=== PATIENT | female | born 1985 | race Caucasian/White ===

== ENCOUNTER → 2018-06-27 08:15 | Outpatient (CLI) | payer OTHER, SELFPAY ==
--- NOTE | 2018-06-27 | DI.US.S_ITS ---
PROCEDURE: US OB <= 14 WEEKS FETUS INDICATIONS: SIZE AND DATES OUTSIDE/PRIOR DATING DATA: Last menstrual period (LMP): Unknown. LMP-based estimated date of delivery (SAL): Unknown. First dating scan (date and location): 06/27/18. Estimated date of delivery (SAL) from first dating scan: 01/30/19. TECHNIQUE: Real-time scanning was performed of the fetus and maternal pelvic organs, with image documentation. Endovaginal scanning was also performed to better visualize the fetus and maternal ovaries. COMPARISON: None. FINDINGS: Embryo: A single intrauterine is identified. A pole is well visualized with a crown-rump length measuring 2.3 cm in length, correlating with an estimated gestational age of 9 weeks 0 days (SAL 01/30/19). A yolk sac is well-visualized and within normal limits. No evidence of a subchorionic hemorrhage is appreciated. heart motion was detected at 169 beats per minute. Measurement variability in dating: +/- 4 weeks by LMP, +/- 7 days by mean sac diameter (use before 6 weeks gestation if crown-rump length not able to be measured), +/- 5 days by crown-rump length (up to 8 weeks 6 days gestation), +/- 7 days by crown-rump length (up to 13 weeks 6 days gestation). Maternal organs: Ovaries are within normal limits. Limited images through the kidneys demonstrate no hydronephrosis. IMPRESSION: 1. Single live intrauterine at 9 weeks 0 days (sonographic SAL of 01/30/19). 2. No subchorionic hemorrhage. Dictated by: Erwin Benavidez M.D. on 06/27/2018 at 8:53 Approved by: Erwin Benavidez M.D. on 06/27/2018 at 8:55
== END ==
PROVIDERS: Family Provider Family Medicine; PCP Family Medicine; Visit Provider Family Medicine
DX: Z34.91 Encounter for supervision of normal pregnancy, unspecified, first trimester (principal); Z3A.09 9 weeks gestation of pregnancy
CPT/HCPCS: 76801; 76817

== ENCOUNTER → 2018-09-14 14:04 | Outpatient (CLI) | payer OTHER, SELFPAY ==
--- NOTE | 2018-09-14 | DI.US.S_ITS ---
PROCEDURE: US OB >= 14 WEEKS FETUS INDICATIONS: 20 WEEK ANATOMICAL SURVEY OUTSIDE/PRIOR DATING DATA: Last menstrual period (LMP): Unknown. LMP-based estimated date of delivery (SAL): Unknown. First dating scan (date and location): 06/27/18. Estimated date of delivery (SAL) from first dating scan: 01/30/19. TECHNIQUE: Real-time scanning was performed of the fetus, with image documentation and biometric measurements. Endovaginal scanning: No COMPARISON: [facility], OB <= 14 WEEKS FETUS, 06/27/2018, 8:25. FINDINGS: General: A single living intrauterine gestation is present. Presentation: Vertex. Placenta: Placental position is posterior, without previa. Amniotic fluid index: 11.6 cm, normal range is 5-24 cm. heart rate: 141 beats per minute. Maternal cervical canal: 3.7 cm long. Normal lower limit is 2.5 cm. biometrics: Biparietal diameter: 21 weeks 2 days Head circumference: 21 weeks 1 day Abdominal circumference: 21 weeks 1 day Femur length: 20 weeks 0 days Estimated gestational age from initial scan: 20 weeks 2 days Composite gestational age from present scan: 20 weeks 6 days Estimated weight and percentile: 369 g; 67% Measurement variability for biometric dating: +/- 7 days from 14 weeks to 15 weeks 6 days gestation, +/- 10 days from 16 weeks to 21 weeks 6 days gestation, +/- 2 weeks from 22 weeks to 27 weeks 6 days gestation, +/- 3 weeks for 28 weeks gestation or later. weight reference: 4500 g or EFW >90/95% is considered macrosomia or large for gestational age. EFW <10% is small for gestational age. EFW 5% or less is considered intra-uterine growth restriction. Anatomic survey: Neuro: Ventricles are non-dilated at less than 10 mm. Cisterna magna is normal at 3-11 mm. Cerebellum is normal in size and morphology. Nuchal skin fold: Normal at less than 6 mm between 14-21 weeks gestational age. Face: Nose and lips, facial profile are normal. Spine: No evidence for spina bifida. Heart: 4-chambered heart is present, with normal ventricular outflow tracts. Diaphragm: Diaphragm is intact. Stomach: Left-sided stomach is present. Kidneys: No hydronephrosis. Normal is less than 5 mm in 2nd trimester, less than 7 mm in 3rd trimester. Cord: 3-vessel cord has orthotopic insertion. Bladder: Normal in size. Extremities: All 4 extremities identified. IMPRESSION: 1. Single living IUP redemonstrated and interval growth is normal. 2. Normal anatomic survey. Dictated by: Fred Eddy [facility] Interpreted: Susana Rockwell MD on 09/14/2018 at 16:19 Approved by: Susana Rockwell M.D. on 09/14/2018 at 16:48
== END ==
PROVIDERS: Family Provider Family Medicine; PCP Family Medicine; Visit Provider Family Medicine
DX: Z36.89 Encounter for other specified antenatal screening (principal); Z3A.21 21 weeks gestation of pregnancy
CPT/HCPCS: 76811

== ENCOUNTER → 2019-01-01 15:44 | Outpatient (CLI) | payer OTHER, SELFPAY | PROVIDERS: Family Provider Family Medicine; PCP Family Medicine; Visit Provider Family Medicine | DX: Z34.80 Encounter for supervision of other normal pregnancy, unspecified trimester (principal) | CPT/HCPCS: 87081 ==

== ENCOUNTER → 2019-01-11 11:51 | Outpatient (CLI) | payer OTHER, SELFPAY ==
--- NOTE | 2019-01-11 | DI.US.S_ITS ---
PROCEDURE: US OB LIMITED INDICATIONS: SIZE GREATER THAN DATES OUTSIDE/PRIOR DATING DATA: Last menstrual period (LMP): Not available. LMP-based estimated date of delivery (SAL): Not available. First dating scan (date and location): 06/27/18. Estimated date of delivery (SAL) from first dating scan: 01/30/19, plus or -5 days. TECHNIQUE: Real-time scanning was performed of the fetus, with image documentation. Endovaginal scanning: Not needed for this study COMPARISON: [facility], 12/20/2016, 15:33. [facility], 11/23/2016, 12:34. FINDINGS: A single living intrauterine gestation is present. Presentation: Vertex. Placenta: Placental position is posterior, without previa. Lower placental edge 0.5 to 3 cm from internal cervical os qualifies as low lying placenta. Marginal previa is defined as lower edge 0 to 0.5 mm from internal os. Amniotic fluid index: 14.9 cm, normal range is 5-24 cm. heart rate: 128 beats per minute. Estimated gestational age from initial scan and this study: 37 weeks 2 days, and the composite gestational age from this study is 37 weeks 3 days, internally consistent and therefore there has been appropriate interval growth. IMPRESSION: Appropriate interval growth, no macrosomia appears present. The expected gestational age from initial OB ultrasound is 37 weeks 2 days and the biometry from today yields a gestational age estimated of 37 weeks 3 days. Delivery is projected to be centered on 01/30/19, plus or -5 days. Dictated by: Mukesh Seymour M.D. on 01/11/2019 at 12:42 Approved by: Mukesh Seymour M.D. on 01/11/2019 at 12:44
== END ==
PROVIDERS: Family Provider Family Medicine; PCP Family Medicine; Visit Provider Family Medicine
DX: O36.63X0 Maternal care for excessive fetal growth, third trimester, not applicable or unspecified (principal); Z3A.37 37 weeks gestation of pregnancy
CPT/HCPCS: 76815

== ENCOUNTER 2019-01-19 18:15 | Outpatient (CLI) | payer OTHER, SELFPAY ==
--- NOTE | 2019-01-20 09:28 | PM.OBTRLD ---
Visit Information Visit Information Date of evaluation: 01/19/19 Primary OB Provider: Charleen De On-call OB Provider: Nancy Quinonez Reason for Evaluation: Yes non-stress test non-stress test reason: decreased movement PENDING SALE TO [facility] Surgical History (Updated 12/13/17 @ 06:07 by Conversion Provider) Status post appendectomy Evaluation Evaluation Baseline heart rate: 120 Variability: Moderate (11-25) monitor accelerations: Present monitor decelerations: Absent Category of Tracing: I Diagnosis, Plan/Disposition Final Diagnosis (1) Decreased movement: Current Visit: No Status: Acute Plan/Disposition Plan: Reactive NST. Discussed kick counts. Stable to d/c home. OB Disposition: home
== END 2019-01-19 18:55 | disposition home or self-care (01) ==
LOC: LABOR 18:49 → OB 01-23 12:08
PROVIDERS: Family Provider Family Medicine; PCP Family Medicine; Visit Provider Family Medicine
DX: O36.8130 Decreased fetal movements, third trimester, not applicable or unspecified (principal); Z3A.38 38 weeks gestation of pregnancy
CPT/HCPCS: 59025; G0378; G0379

== ENCOUNTER 2019-01-30 17:19 | Inpatient (IN) | payer OTHER, SELFPAY ==
[2019-01-30 18:17] LABS: Add Manual Diff / Slide Review NO; Basophils Absolute Auto 100 /uL (0-100); Eosinophils Absolute Auto 200 /uL (0-450); Eosinophils Percent Auto 1.8 % (2-4); Hematocrit 38.1 % (36-46); Hemoglobin 12.9 g/dL (12.0-16.0); Lymphocytes Absolute Auto 1600 /uL (1100-4500); Lymphocytes Percent Auto 12.9 % (25-40); Mean Corpuscular HGB Conc 33.8 % (30-36); Mean Corpuscular Hemoglobin 30.7 PG (26-34); Mean Corpuscular Volume 90.7 fL (80-100); Monocytes Absolute Auto 600 /uL (0-900); Monocytes Percent Auto 5.1 % (3-14); Neutrophils Absolute Auto 9900 /uL (1500-7000); Neutrophils Percent Auto 79.2 % (50-75); Platelet Count 195 X10^3/uL (150-400); Red Cell Distribution Width 13.4 % (11.6-14.8); White Blood Cell Count 12.5 X10^3/uL (4.5-11.0)
[2019-01-30] MEDS: LACTATED RINGERS 1,000 ML 100 ML IV (19:09)
--- NOTE | 2019-01-30 20:51 | PM.OBPNLAB ---
Date/Time Date Patient Seen: 01/30/19 Time Patient Seen: 20:52 Pain Control Pain control: epidural Comments: epidural placed at 7pm, pt comfortable Pelvic Exam Dilation (cm): 10 Effacement (%): 100 station: 0 Amniotic membrane status: Ruptured Comments: AROM thin meconium at 2039 Contractions Date/Time contractions began: 01/30/19 at 11am Contractions on admission: regular Monitor mode: External Pitocin rate (mU/min): 0 Contraction frequency (min): 3 Contraction duration (min): 1 Contraction pattern: Regular Status status: Category l Heart Rate Baseline: 130 Monitor Accelerations: Present Monitor Decelerations: Variable Monitor Variability: Moderate Assessment and Plan Assessment: active labor Plan: continuous present management Comments: complete and arom will begin pushing meconium, RT notified and support nursing GBS negative A positive, rubella immune
[2019-01-30] MEDS: OXYTOCIN PREMIX 30 UNIT/500 ML PLAST..BAG 999 UNIT IV (21:30)
--- NOTE | 2019-01-30 21:59 | P.PCNOB_ITS ---
Events: Meconium Stained Fluid Delivery date: 01/30/19 Intrapartal events: None and Acceleration Cervical ripening method: none Induction method: AROM Delivery augmentation: rupture of membranes Delivery monitor: external FHT Route of delivery: Episiotomy description: None L&D Laceration Description: None Estimated blood loss (mL): 100 Complications: baby spontaneously delivered as I was entering the L and D room after one practice push by the RN Delivered by RN Narrative: Identifying data: This 33-year-old at 40 weeks estimated gestational age based on a 1st trimester ultrasound and LMP with an EDC of 01/30/2019 presents to Labor and delivery with complaints of sudden onset of uterine contractions at 11:00 a.m.. When the contractions became so painful that she could not talk through them or 5 minutes apart she presented to the ER and delivery. She was 6 cm and requesting epidural which was placed. She had uncomplicated . Stage I: 9 hours and 6 minutes Patient had onset of uterine contractions that were regular starting at 11:00 a.m. they became closer together and more painful and she contacted our office at approximately 5:00 p.m. stated that she was going into labor and delivery. She presented to labor and delivery was found to be having regular painful contractions 6 cm dilated 80% effaced and -1 station. An epidural was requested and was finished at 7:00 p.m.. It provided excellent anesthesia throughout the remainder of the delivery. External tocometer was used throughout stage I with uterine contractions moderate to palpation every 2-4 minutes. External heart monitor was used as well showing a category 1 tracing with heart tones in the 130s baseline with moderate variability and accelerations and occasional variable deceleration into the low 100s. Patient was noted to be complete at 8:06 p.m. on the date of delivery. Artificial rupture of membranes was performed by me at 8:40 p.m. obtaining a large amount of meconium-stained f luid. It was thin meconium but copious amounts of amniotic fluid. Stage II lasted 3 minutes The patient was allowed to labor down and the nurse was preparing for pushing and the patient did 1 practice push and was . She has gone from 0 station to with 1 push and I was contacted to come emergently. I ride and baby was delivered. Baby was reported to be in direct occiput anterior with no nuchal cord. Baby was crying at delivery and was vigorous. Apgars were 9 at 1 minute and 9 at 5 minutes. Stage III lasted 7 minutes Normal spontaneous vaginal delivery of an intact moderately calcified large placenta with a central cord insertion with a three-vessel cord. Amniotic membranes were intact. Catheter was removed at this time of delivery. Estimated blood loss was 100 cc. There was no cervical or vaginal or perineal lacerations. No UE periurethral lacerations. Pitocin was run in. Uterus was firm. At the time of this delivery both mom and baby are in stable condition. Plan for aftercare: routine care
--- NOTE | 2019-01-30 22:11 | PM.HP.1 ---
History of Present Illness Date Patient Seen: 01/30/19 Time Patient Seen: 20:30 Chief complaint: OBSERVATION OF LABOR Narrative: 33-year-old at 40 weeks estimated gestational age based on EDC of 01/30/2019 based on 1st trimester ultrasound and LMP presents to Labor and delivery in active labor. She had sudden onset of uterine contractions at 11:00 a.m.. She was found to be 6 cm on presentation to Labor and delivery at approximately 6:00 p.m. on date of delivery. She had bloody show but no leaking of fluid. care was begun early on. Patient had approximately 40 lb weight gain. She had unremarkable . She had blood pressures ranging 110-118/62-80. She had a total of 12 visits. No testing done A positive, antibody screen negative, rubella immune. Hepatitis B hepatitis C cephalothin HIV negative. Chlamydia and gonorrhea negative, Pap smear normal, no anemia. Glucose tolerance test 102. GBS negative. 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 Patient was treated with Valtrex. Past OB history: 1. 12/24/2016 at 40 and 4 7 weeks estimated gestational age after 20 hours of labor with an epidural forceps assisted vaginal delivery of a viable infant weighing 7 lb 10 oz at [facility], and [facility] Past surgical history appendectomy in 2010 Past medical history: 1. Fibromyalgia 2. Posttraumatic stress disorder 3. Panic disorder Patient History Surgical History (Updated 12/13/17 @ 06:07 by Conversion Provider) Status post appendectomy Family & Social History Social History: and works at [employer]. Lives in [place] with her and 2-year-old daughter Quynh Tobacco & Substance use: None Meds Home Medications Medication Instructions Recorded Confirmed Type acyclovir 400 mg PO BID 01/30/19 01/30/19 History Allergies Allergy/AdvReac Type Severity Reaction Status Date / Time aspartame Allergy Intermediate Migraine Verified 01/30/19 19:16 oxycodone [OXYCODONE] Allergy Unknown Verified 01/30/19 19:14 Penicillins [PENICILLINS] Allergy Unknown Verified 01/30/19 19:14 Review of Systems Review of Systems Bloody show. No leaking fluid. No abdominal pain. No headaches. Baby has been active. No urine symptoms no reflux All systems reviewed & are unremarkable except as noted in HPI and below Exam Narrative Exam Narrative: Afebrile, vital signs are stable HEENT is unremarkable Neck is supple no masses or thyromegaly Chest: Clear to auscultation Cor: Regular rate and rhythm without any murmur Abdomen: Gravid, vertex, estimated weight 8 lb Extremities trace edema, DTRs 1+ Cervical exam complete with a bulging bag 0 station Objective Labs Result Diagrams: 01/30/19 18:00 Labs: Laboratory Results - last 24 hr 01/30/19 01/30/19 18:00 18:00 WBC 12.5 H RBC 4.20 Hgb 12.9 Hct 38.1 MCV 90.7 MCH 30.7 MCHC 33.8 RDW 13.4 Plt Count 195 Neut % (Auto) 79.2 H Lymph % (Auto) 12.9 L [place] % (Auto) 5.1 Eos % (Auto) 1.8 L Baso % (Auto) 1.0 Neut # (Auto) 9900 H Lymph # (Auto) 1600 [place] # (Auto) 600 Eos # (Auto) 200 Baso # (Auto) 100 Blood Type A Positive Antibody Screen Negative Assessment & Plan Assessment & Plan narrative: 33-year-old at 40 weeks estimated gestational age based on ED of 01 30 2019 based on LMP and 1st trimester ultrasound and an active labor and now complete resting comfortably with epidural A rum performed showing thin meconium and copious fluid GBS negative A positive, rubella immune 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 No testing Tdap given Glucose tolerance test 102
[2019-01-31] VITALS: BP 101/63
[2019-01-31] MEDS: IBUPROFEN 600 MG TABLET PO ×4 (02:55→23:51)
[2019-01-31] MEDS: HYDROCODONE/ACET 5/325 TABLET 1 TAB PO ×5 (03:29→22:15)
[2019-01-31] MEDS: DOCUSATE 250 MG CAPSULE PO (08:11)
[2019-01-31] MEDS: DERMOPLAST SPRAY 20% 60 ML 1 SPRAY TOP (08:14)
[2019-01-31 10:21] LABS: Add Manual Diff / Slide Review NO; Basophils Absolute Auto 0 /uL (0-100); Basophils Percent Auto 0.3 % (0-2); Eosinophils Absolute Auto 200 /uL (0-450); Eosinophils Percent Auto 1.6 % (2-4); Hematocrit 34.7 % (36-46); Hemoglobin 11.5 g/dL (12.0-16.0); Lymphocytes Absolute Auto 2000 /uL (1100-4500); Lymphocytes Percent Auto 17.9 % (25-40); Mean Corpuscular Hemoglobin 30.3 PG (26-34); Mean Corpuscular Volume 91.6 fL (80-100); Monocytes Absolute Auto 800 /uL (0-900); Monocytes Percent Auto 7.1 % (3-14); Neutrophils Absolute Auto 8200 /uL (1500-7000); Neutrophils Percent Auto 73.1 % (50-75); Platelet Count 181 X10^3/uL (150-400); Red Blood Cell Count 3.79 X10^6/uL (4.0-5.2); Red Cell Distribution Width 13.6 % (11.6-14.8); White Blood Cell Count 11.2 X10^3/uL (4.5-11.0)
--- NOTE | 2019-01-31 16:35 | PM.OBPN.1 ---
Subjective - OB Patient comments: no complaints, pain well controlled, tolerating diet and flatus present baby status: doing well and nursing well feeding status: exclusively breast feeding Date Patient Seen: 01/31/19 Time Patient Seen: 16:37 Interval history: day 1. Status post normal spontaneous vaginal delivery without perineal lacerations. Second baby. Breast-feeding well without difficulty. Pain is controlled with hydrocodone and Motrin. Cramping is increased from last delivery but recovery is faster. No significant perineal pain. Lochia is decreasing. Exam Narrative Exam Narrative: Alert and oriented x3, vital signs are stable Chest: Clear to auscultation without wheezes rhonchi or crackles Cor: Regular rate and rhythm without murmur Abdomen: Uterus is firm and well below the umbilicus Extremities: No edema, DTRs are intact Objective Labs Result Diagrams: 01/31/19 08:50 Labs: Laboratory Results - last 24 hr 01/30/19 01/30/19 01/31/19 18:00 18:00 08:50 WBC 12.5 H 11.2 H RBC 4.20 3.79 L Hgb 12.9 11.5 L Hct 38.1 34.7 L MCV 90.7 91.6 MCH 30.7 30.3 MCHC 33.8 33.0 RDW 13.4 13.6 Plt Count 195 181 Neut % (Auto) 79.2 H 73.1 Lymph % (Auto) 12.9 L 17.9 L [place] % (Auto) 5.1 7.1 Eos % (Auto) 1.8 L 1.6 L Baso % (Auto) 1.0 0.3 Neut # (Auto) 9900 H 8200 H Lymph # (Auto) 1600 2000 [place] # (Auto) 600 800 Eos # (Auto) 200 200 Baso # (Auto) 100 0 Blood Type A Positive Antibody Screen Negative Assessment & Plan Time Spent With Patient Total time spent is greater than 50% in coordination of care (as documented) at patient's floor/unit and/or counseling patient: 30 minutes 33-year-old day 1. Status post normal spontaneous vaginal delivery Will add MiraLax Continue vitamins support H&H did not drop significantly. Plan for discharge to home in a.m.. Rh positive, GBS negative, rubella immune, status post Tdap 25 - 35 minutes
[2019-01-31] MEDS: PRENATAL VIT,CALC/IRON/FOLIC 1 TABLET 1 TAB PO (17:13)
[2019-01-31] MEDS: POLYETHYLENE GLYCOL 3350 17 GM POWD.PACK PO (17:15)
[2019-02-01] MEDS: HYDROCODONE/ACET 5/325 TABLET 1 TAB PO ×2 (04:16→09:35)
[2019-02-01] MEDS: IBUPROFEN 600 MG TABLET PO (08:24)
[2019-02-01] MEDS: PRENATAL VIT,CALC/IRON/FOLIC 1 TABLET 1 TAB PO (08:24)
[2019-02-01] MEDS: DOCUSATE 250 MG CAPSULE PO (08:24)
--- NOTE | 2019-02-01 08:30 | PM.OBDS.1 ---
Discharge Providers Date of admission: 01/30/19 17:19 Discharge Date: 02/01/19 Primary care physician: Charleen De MD Consults: 01/30/19 21:59 Consult to Testing Coordinator Routine Comment: Discharge provider: Charleen De MD Summary Time Spent with Patient Total time spent providing and/or coordinating discharge services:30 min Patient presented to Labor and delivery in active labor at 6 cm dilated. She received epidural. She had a normal spontaneous vaginal delivery of a viable male infant weighing 8 lb 1 oz. She had unremarkable course. There was rupture of membranes about 1-2 hours plus O2 delivery. There was meconium-stained fluid. GBS negative. She was discharged home on day 2. In stable condition. Discharge medications include ibuprofen she will take home medicine. Hydrocodone as needed vitamins and MiraLax at home. Routine discharge instructions given. Follow up with me in 2 weeks. Objective Labs Result Diagrams: 01/31/19 08:50 Labs: Laboratory Results - last 24 hr 01/31/19 08:50 WBC 11.2 H RBC 3.79 L Hgb 11.5 L Hct 34.7 L MCV 91.6 MCH 30.3 MCHC 33.0 RDW 13.6 Plt Count 181 Neut % (Auto) 73.1 Lymph % (Auto) 17.9 L [place] % (Auto) 7.1 Eos % (Auto) 1.6 L Baso % (Auto) 0.3 Neut # (Auto) 8200 H Lymph # (Auto) 2000 [place] # (Auto) 800 Eos # (Auto) 200 Baso # (Auto) 0 Exam Vital Signs (past 8 hours): Alert and oriented x3 Chest: Clear to auscultation without wheezes rhonchi or crackles Cor: Regular rate and rhythm without any murmur Abdomen: Positive bowel sounds, soft, uterus well below the umbilicus and firm Extremities: Trace edema, normal DTRs Discharge Plan Discharge Plan Patient Disposition: Home Discharge Med Rec/Prescriptions Prescriptions: New hydrocodone-acetaminophen 5-325 mg Tablet 1 tab PO Q4HR PRN (Reason: Pain, Moderate (4-6)) Qty: 20 RF: 0 Discontinued acyclovir 400 mg Tablet 400 mg PO BID RF: 0 Follow up/Referrals: Charleen De MD [Primary Care Provider] - Provider Discharge Instructions Diet: Diet as Tolerated Activity: pelvic rest no heavy lifting Discharge Data Primary Care Provider: Charleen De Attending Provider: Charleen De Admit Date/Time: 01/30/19 17:19
[2019-02-01] MEDS: POLYETHYLENE GLYCOL 3350 17 GM POWD.PACK PO (08:49)
[2019-02-01 10:51] VITALS: BP 118/72; PULSE 72; RESP 16; TEMP 36.6
== END 2019-02-01 13:28 | disposition home or self-care (01) | DRG 807 ==
PROVIDERS: Admitting Provider Family Medicine; Family Provider Family Medicine; PCP Family Medicine; Visit Provider Family Medicine
DX: O98.32 Other infections with a predominantly sexual mode of transmission complicating childbirth (principal); Z37.0 Single live birth; B00.9 Herpesviral infection, unspecified; Z3A.40 40 weeks gestation of pregnancy; O77.0 Labor and delivery complicated by meconium in amniotic fluid
CPT/HCPCS: 01967; 36415; 59050; 85025; 86850; 86900; 86901; G0379; J2590